=== PATIENT | male | born 1975 | race Caucasian/White ===

== ENCOUNTER → 2018-01-18 | Outpatient (CLI) | payer BC ==
[2016-03-27 12:00] VITALS: BP 167/118
--- NOTE | 2018-01-18 13:07 | RAD ---
RENAL DUPLEX, RENAL COMPLETE BILATERAL History: Hypertension Comparison: None. Findings: Renal ultrasound: Multiple sonographic images of the kidneys and retroperitoneal structures are submitted. Visualized abdominal aortic caliber is within normal limits. Right kidney measured 11.6 x 6.1 x 6.3 cm. Left kidney measured 12.2 x 5.6 x 4.8 cm. There is no hydronephrosis of either kidney. Renal arterial ultrasound: Multiple grayscale, color, and duplex spectral analysis waveform images of the abdominal aorta and renal arteries are submitted. Peak systolic velocity of the abdominal aorta was 124 cm/s. Maximal right renal artery PSV was 162 cm/s proximally, left 129 cm/s proximally. Maximal right resistive index 0.73 proximally, 0.87 proximally on the left. Right RA/AO ratio 1.3, left 1.0. Renal veins are patent bilaterally. Impression: 1. There is no evidence of a hemodynamically significant stenosis of the renal arteries. 2. There is no hydronephrosis of either kidney. Electronically signed by: Merrick Emerson MD (01/18/2018 1:04 PM) [id number]
== END | disposition home or self-care (01) ==
LOC: US 07:55
PROVIDERS: ATTEND Family Medicine
DX: I10 Essential (primary) hypertension (principal)
CPT/HCPCS: 76770; 93975